=== PATIENT | female | born 1990 | race Caucasian/White ===

== ENCOUNTER 2016-10-20 08:44 | Outpatient (CLI) | payer OTHER ==
--- NOTE | 2016-10-20 10:21 | Ultrasound Report ---
BILATERAL BREAST ULTRASOUND: 10/20/2016 CLINICAL HISTORY: A 26-year-old female who has bilateral breast pain. Patient has no family history of breast cancer. She has a history of mastitis in the right breast on 09/18/2015. TECHNIQUE: Real-time scanning was performed with containers sales representative static images obtained. FINDINGS: Left breast shows no significant abnormality. No masses are seen. No cysts are noted. Right breast demonstrates an oval-shaped hypoechoic, well-circumscribed, solid mass with a hyperechoi c rim in the 11:30 position 3 cm superior to the nipple. This mass measures 1.1 x 0.5 x 1.0 cm. It has characteristics consistent with a benign fibroadenoma. Recommend a repeat ultrasound in six dk hs to further confirm this benign etiology. IMPRESSION: 1. NEGATIVE LEFT BREAST ULTRASOUND. 2. A 1.1 X 0.5 X 1.0 CM OVAL-SHAPED HYPOECHOIC, SOLID MASS WITH A THIN HYPERECHOIC RIM IS NOTED IN T HE 11:30 POSITION OF THE RIGHT BREAST. THIS HAS CHARACTERISTICS TYPICAL OF A BENIGN FIBROADENOMA. R ECOMMEND IT BE FOLLOWED WITH A REPEAT ULTRASOUND IN SIX MONTHS TO FURTHER CONFIRM THIS BENIGN ETIOLOG Y. BIRADS CATEGORY 3 - PROBABLY BENIGN FINDING. SHORT INTERVAL FOLLOWUP IMAGING STUDY RECOMMENDED. SIX -MONTH FOLLOWUP RIGHT BREAST ULTRASOUND IS INDICATED. COMMENT: Dr. Pedraza informed the patient of a probable benign fibroadenoma in the upper half of the right breast. He recommended a repeat ultrasound in six months for further evaluation. He also rec ommended to her monthly breast examination. If she notices the mass increasing in size before six mo nths, she should return to her physician. Patient was also given a written form indicating a probabl y benign finding in the right breast and recommending a six-month followup right breast ultrasound. 10:9:04 JOB #: [id number] EXT [id number] #:[id number]
--- NOTE | 2016-10-20 12:17 | Ultrasound Report ---
BILATERAL BREAST ULTRASOUND: 10/20/2016 CLINICAL HISTORY: A 26-year-old female who has bilateral breast pain. Patient has no family history of breast cancer. She has a history of mastitis in the right breast on 09/18/2015. TECHNIQUE: Real-time scanning was performed with industrial sales representative static images obtained. FINDINGS: Left breast shows no significant abnormality. No masses are seen. No cysts are noted. Right breast demonstrates an oval-shaped hypoechoic, well-circumscribed, solid mass with a hyperechoic rim in the 11:30 position 3 cm superior to the nipple. This mass measures 1.1 x 0.5 x 1.0 cm. It has characteristics consistent with a benign fibroadenoma. Recommend a repeat ultrasound in six months to further confirm this benign etiology. IMPRESSION: 1. NEGATIVE LEFT BREAST ULTRASOUND. 2. A 1.1 X 0.5 X 1.0 CM OVAL-SHAPED HYPOECHOIC, SOLID MASS WITH A THIN HYPERECHOIC RIM IS NOTED IN THE 11:30 POSITION OF THE RIGHT BREAST. THIS HAS CHARACTERISTICS TYPICAL OF A BENIGN FIBROADENOMA. RECOMMEND IT BE FOLLOWED WITH A REPEAT ULTRASOUND IN SIX MONTHS TO FURTHER CONFIRM THIS BENIGN ETIOLOGY. BIRADS CATEGORY 3 - PROBABLY BENIGN FINDING. SHORT INTERVAL FOLLOWUP IMAGING STUDY RECOMMENDED. SIX-MONTH FOLLOWUP RIGHT BREAST ULTRASOUND IS INDICATED. COMMENT: Dr. Pedraza informed the patient of a probable benign fibroadenoma in the upper half of the right breast. He recommended a repeat ultrasound in six months for further evaluation. He also recommended to her monthly breast examination. If she notices the mass increasing in size before six months, she should return to her physician. Patient was also given a written form indicating a probably benign finding in the right breast and recommending a six- month followup right breast ultrasound. BRYSON
== END 2016-10-20 08:45 | disposition home or self-care (01) ==
LOC: DI 08:44
PROVIDERS: ATTEND Family Medicine
DX: N63 Unspecified lump in breast (principal)
CPT/HCPCS: 76642

== ENCOUNTER 2016-11-06 15:31 | Emergency (ER) | payer OTHER ==
[2016-11-06] MEDS ORDERED: SODIUM CHLORIDE 0.9% 1,000 ML IV ONE (16:37)
[2016-11-06] MEDS ORDERED: PROCHLORPERAZINE INJ 10 MG in SODIUM CHLORIDE 0.9% 50 ML IV ONE (16:38)
[2016-11-06] MEDS ORDERED: diphenhydrAMINE INJ 50 MG/ML VIAL IVP STA (16:38)
[2016-11-06] MEDS ORDERED: diphenhydrAMINE INJ 50 MG/ML VIAL ONE (16:52)
[2016-11-06] MEDS ORDERED: PROCHLORPERAZINE 10 MG/2 ML VIAL ONE (16:53)
--- NOTE | 2016-11-06 17:24 | ED Physician Documentation ---
History of Present Illness - Stated complaint Stated Complaint: MIGRAINE - Chief complaint Chief Complaint: Neuro - History obtained from History obtained from: Patient - Additonal information Additional information: This patient is a pleasant 26-year-old female with a history of migraine headaches. She is normally on Imitrex however she had the onset of headache last night that was refractory to a dose of Imitrex late last night, followed by naproxen and another dose of Imitrex. Headache is frontal more in the right than the left. Is made worse by leaning forward, noise, and bright lights. She has had nausea and vomiting earlier today and feels warm. This is a typical migraine headache for her she says. She denies any neck pain, stiffness or other infectious symptoms or traumatic injury. She is to get headaches often however they have decreased in frequency following her . Her last headache was a week ago. She is followed by her PMD for this problem. Review of systems: For pertinent positive and negative questions for the review of systems please see history of present illness. Otherwise all other systems have been reviewed and are negative. Dragon disclaimer: Parts of this medical record were created using voice recognition technology. Because of the inherent limitations of this system occasional same sounding word substitutions do occur and persist despite proofreading. Please read the document for context. 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: Other HEENT: Tonsil/Adenoidectomy - Present Medications Home Medications: Ambulatory Orders Medication Instructions Recorded Confirmed Citalopram [CeleXA] 20 mg PO DAILY 11/06/16 11/06/16 Dextroamphetamine/Amphetamine 30 mg PO DAILY 11/06/16 11/06/16 [Adderall 30 mg Tablet] Etonogestrel/Ethinyl Estradiol 11/06/16 [Nuvaring Vaginal Ring] Lamotrigine [Lamotrigine ER] 200 mg PO DAILY 11/06/16 11/06/16 Sumatriptan Succinate [Imitrex] 50 mg PO BID PRN 11/06/16 11/06/16 cloNIDine [Catapres] 0.2 mg PO DAILY 11/06/16 11/06/16 - Allergies Allergies/Adverse Reactions: Allergies Allergy/AdvReac Type Severity Reaction Status Date / Time azithromycin Allergy Intermediate Rash Verified 12/19/15 19:58 latex Allergy Intermediate Rash Verified 12/19/15 19:58 gluten Allergy Cramps Verified 12/19/15 19:58 pineapple Allergy Hives Verified 12/19/15 19:58 - Social History Does the pt smoke?: No Smoking Status: Never smoker Does the pt drink ETOH?: Yes Does the pt have substance abuse?: No - Immunizations Immunizations are current?: Yes - POLST Patient has POLST: No PD ED PE NORMAL - General General: Alert and oriented X 3, No acute distress, Well developed/nourished - HEENT HEENT: Atraumatic, PERRL, EOMI - Cardiac Cardiac: RRR, No murmur, No gallop - Respiratory Respiratory: No respiratory distress, Clear bilaterally - Abdomen Abdomen: Normal bowel sounds, Soft, Non tender, Non distended - Back Back: No CVA TTP, No spinal TTP - Derm Derm: Normal color, Warm and dry, No rash, Other - Extremities Extremities: No deformity, Normal ROM s pain, No edema - Neuro Neuro: Alert and oriented X 3, tire mounter 2-12 intact, No motor deficit, No sensory deficit - Psych Psych: Normal mood, Normal affect Results - Vitals Vitals: Vital Signs - 24 hr 11/06/16 15:40 Temperature 35.3 C L Heart Rate 87 Respiratory 16 Rate Blood Pressure 129/82 H O2 Saturation 100 Oxygen O2 Source Room air PD MEDICAL DECISION MAKING - ED course ED course: Patient is a 26-year-old femaleWho presents with a complaint of migrainous symptoms. The symptoms are quite typical for her. There are no other unusual circumstances. On examination she is well-appearing female no apparent distress she is awake and alert answers questions appropriately and has a normal neurologic examination. She was given a migrainous headache cocktail consisting of IV fluids Compazine and Benadryl has had significant improvement in her symptoms. At this point in time she feels much better and will be released to home. Disposition: To home Clinical impression: 1. Acute migrainous headache bilateral frontal area-resolved
[2016-11-06 18:01] VITALS: BP 110/71
== END 2016-11-06 18:01 | disposition home or self-care (01) ==
LOC: ED 15:31
DX: G43.909 Migraine, unspecified, not intractable, without status migrainosus (principal)
CPT/HCPCS: 96374; 96375; 99283; 99284

== ENCOUNTER 2017-04-13 17:45 | Emergency (ER) | payer OTHER ==
[2017-04-13] MEDS ORDERED: DEXAMETHASONE 10 MG/ML VIAL PO STA (18:31)
[2017-04-13] MEDS ORDERED: IBUPROFEN 800 MG TABLET PO STA (18:31)
--- NOTE | 2017-04-13 18:39 | ED Physician Documentation ---
PD HPI URI - Stated complaint Stated Complaint: FLU LIKE SYMPTOMS - Chief complaint Chief Complaint: Fever - History obtained from History obtained from: Patient - History of Present Illness Timing - onset: Today Timing duration: Days (1) Timing details: Gradual onset Pain level max: 4 Pain level now: 4 Associated symptoms: Fever, Chills, Sweats, Sore throat, Other (body aches) Contributing factors: Sick contact (students) Improves by: Medication (motrin) Worsened by: Other (swallowing) Recently seen: Not recently seen - Additional information Additional information: states generalized body aches and low back body aches Review of Systems Constitutional: denies: Fever, Chills Ears: denies: Ear pain Nose: denies: Rhinorrhea / runny nose, Congestion Throat: reports: Sore throat Respiratory: denies: Cough GI: denies: Abdominal Pain, Nausea, Vomiting, Diarrhea : denies: Dysuria, Frequency, Hesitancy, Now EGA Skin: denies: Rash Musculoskeletal: denies: Neck pain Neurologic: denies: Focal weakness, Numbness, Headache PD PAST MEDICAL HISTORY - Past Medical History Cardiovascular: None Respiratory: None Neuro: None Endocrine/Autoimmune: None, Other GI: None : None HEENT: None Psych: Post traumatic stress disorder, Other Musculoskeletal: None Derm: None - Past Surgical History Past Surgical History: Yes 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: Other HEENT: Tonsil/Adenoidectomy - Present Medications Home Medications: Ambulatory Orders Medication Instructions Recorded Confirmed Dextroamphetamine/Amphetamine 30 mg PO DAILY 11/06/16 04/13/17 [Adderall 30 mg Tablet] Etonogestrel/Ethinyl Estradiol 1 11/06/16 [Nuvaring Vaginal Ring] Lamotrigine [Lamotrigine ER] 200 mg PO DAILY 11/06/16 04/13/17 Sumatriptan Succinate [Imitrex] 50 mg PO BID PRN 11/06/16 04/13/17 cloNIDine [Catapres] 0.2 mg PO DAILY 11/06/16 04/13/17 Dextroamphetamine/Amphetamine 1 tab PO DAILY 04/13/17 04/13/17 [Adderall 20 mg Tablet] Ibuprofen [Motrin] 800 mg PO Q8H PRN #30 tablet 04/13/17 - Allergies Allergies/Adverse Reactions: Allergies Allergy/AdvReac Type Severity Reaction Status Date / Time azithromycin Allergy Intermediate Rash Verified 04/13/17 17:52 latex Allergy Intermediate Rash Verified 04/13/17 17:52 gluten Allergy Cramps Verified 12/19/15 19:58 pineapple Allergy Hives Verified 12/19/15 19:58 - Social History Does the pt smoke?: No Smoking Status: Never smoker Does the pt drink ETOH?: Yes Does the pt have substance abuse?: No - Immunizations Immunizations are current?: Yes - POLST Patient has POLST: No PD ED PE NORMAL - Vitals Vital signs reviewed: Yes - General General: Alert and oriented X 3, No acute distress - HEENT HEENT: PERRL, Moist mucous membranes, Other (mild posterior oropharyngeal erythema without exudates.) - Neck Neck: Supple, no meningeal sign, No adenopathy - Cardiac Cardiac: RRR, Strong equal pulses - Respiratory Respiratory: Clear bilaterally - Abdomen Abdomen: Soft, Non tender, Non distended - Back Back: No CVA TTP, No spinal TTP - Derm Derm: Warm and dry - Extremities Extremities: No edema, No calf tenderness / cord - Neuro Neuro: Alert and oriented X 3, mix chemist 2-12 intact, No motor deficit, No sensory deficit, Normal speech - Psych Psych: Normal mood, Normal affect Results - Vitals Vitals: Oxygen O2 Source Room air - Labs Labs: Microbiology 04/13/17 18:23 Group A Strep Throat Culture - Preliminary Throat CULTURE IN PROGRESS. RESULTS TO FOLLOW. Laboratory Tests 04/13/17 04/13/17 04/13/17 18:23 18:23 18:40 Urine Color YELLOW Urine Clarity CLEAR Urine pH 6.0 Ur Specific [place] 1.020 Urine Protein NEGATIVE Urine Glucose (UA) NEGATIVE Urine Ketones NEGATIVE Urine Occult Blood NEGATIVE Urine Nitrite NEGATIVE Urine Bilirubin NEGATIVE Urine Urobilinogen 0.2 (NORMAL) Ur Leukocyte Esterase NEGATIVE Ur Microscopic Review NOT INDICATED Urine Culture Comments NOT INDICATED Urine HCG, Qual NEGATIVE Influenza A (Rapid) Negative Influenza B (Rapid) Negative Influenza Types A,B Ag - Group A Strep Rapid Negative PD MEDICAL DECISION MAKING - ED course Complexity details: reviewed results, re-evaluated patient, considered differential, d/w patient ED course: Patient is a 27-year-old female who presents to the emergency department what appears to be a viral syndrome. She is well-appearing, nontoxic. Afebrile here. Tolerating p.o. without difficulty. Feels better after treatment. Negative influenza swab. Negative rapid strep. Negative urinalysis. We will continue supportive care and follow-up with her doctor. Patient counseled regarding signs and symptoms for which I believe and urgent re-evaluation would be necessary. Patient with good understanding of and agreement to plan and is comfortable going home at this time This document was made in part using voice recognition software. While efforts are made to proofread this document, sound alike and grammatical errors may occur. Departure - Departure Disposition: 01 Home, Self Care Clinical Impression: Viral syndrome Condition: Good Instructions: ED Viral Syndrome Follow-Up: MARQUITA ESCALANTE [Primary Care Provider] - Within 1 week Prescriptions: Ibuprofen [Motrin] 800 mg PO Q8H PRN #30 tablet PRN Reason: PAIN &/OR FEVER Comments: Drink plenty of fluids and rest. Return if you worsen. Your influenza and strep tests are negative today. Discharge Date/Time: 04/13/17 20:11
[2017-04-13] MEDS ORDERED: IBUPROFEN 800 MG TABLET PO ONE (18:41)
[2017-04-13] MEDS ORDERED: DEXAMETHASONE 10 MG/ML VIAL ONE (18:41)
[2017-04-13] MEDS ORDERED: CHERRY SYRUP 10 ML UDC PO ONE (18:42)
[2017-04-13 18:52] LABS: RAPID STREP SCREEN REAGENT QC YELLOW (YELLOW)
[2017-04-13 19:46] LABS: BILIRUBIN,URINE NEGATIVE (NEGATIVE)
[2017-04-13 19:47] LABS: UA CHARGE (STRIP ONLY) YES; UR CULTURE IF IND NOT INDICATED
[2017-04-13 19:49] LABS: HCG UR QUAL NEGATIVE
[2017-04-13 19:55] VITALS: BP 141/72
== END 2017-04-13 20:11 | disposition home or self-care (01) ==
LOC: ED 17:45
DX: B34.9 Viral infection, unspecified (principal)
CPT/HCPCS: 81003; 81025; 87070; 87275; 87276; 87430; 99283; A9270; 81001; 87086

== ENCOUNTER 2017-06-19 10:33 | Outpatient (CLI) | payer OTHER ==
--- NOTE | 2017-06-19 11:58 | Ultrasound Report ---
RIGHT BREAST ULTRASOUND: 06/19/2017 CLINICAL INDICATION: Followup fibroadenoma. COMPARISON: 10/20/2016. TECHNIQUE: Real-time scanning was performed with airport representative static images obtained. FINDINGS: Ultrasound of the right upper outer quadrant was performed. At the 11:30 position, 3 cm from the nipple, there is an 11 x 9 x 6 mm hypoechoic circumscribed nodule with posterior acoustic enhancement, compatible with a stable fibroadenoma. No sonographically suspicious findings are appreciated. IMPRESSION: BENIGN FINDINGS, WITH A STABLE LIKELY FIBROADENOMA AT THE 11:30 POSITION OF THE RIGHT BREAST. RECOMMENDATION: ROUTINE ANNUAL SCREENING, TO COMMENCE AT AGE 39, UNLESS OTHERWISE CLINICALLY INDICATED. BIRADS CATEGORY 2-BENIGN FINDINGS. TD: 06/19/2017 11:57
== END 2017-06-19 10:34 | disposition home or self-care (01) ==
LOC: DI 10:33
PROVIDERS: ATTEND Family Medicine
DX: D24.1 Benign neoplasm of right breast (principal)
CPT/HCPCS: 76642

== ENCOUNTER 2017-07-26 14:26 | Emergency (ER) | payer OTHER ==
--- NOTE | 2017-07-26 14:57 | ED Physician Documentation ---
PD HPI HEADACHE - Stated complaint Stated Complaint: MIGRAINE - Chief complaint Chief Complaint: Neuro - History obtained from History obtained from: Patient - History of Present Illness Timing - onset: Today Timing - onset during: Light activity Timing - duration: Hours Timing - details: Gradual onset, Still present, Constant Worst headache ever?: No: Worst headache ever? Location: Front, Right Quality: Throbbing, Aching Associated symptoms: Nausea, Vomiting, Vision changes (lights bothersome). No: Fever, Stiff neck, Weakness, Numbness Worsened by: Light, Noise Contributing factors: No: Hypertension, Recent illness, Trauma Similar symptoms before: Diagnosis (migraines, with home meds usually working okay.) Recently seen: Not recently seen Review of Systems Constitutional: denies: Fever, Chills Eyes: reports: Photophobia. denies: Loss of vision Nose: denies: Rhinorrhea / runny nose, Congestion Throat: denies: Sore throat GI: reports: Nausea, Vomiting. 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: Other HEENT: Tonsil/Adenoidectomy - Present Medications Home Medications: Ambulatory Orders Medication Instructions Recorded Confirmed Dextroamphetamine/Amphetamine 30 mg PO DAILY 11/06/16 04/13/17 [Adderall 30 mg Tablet] Etonogestrel/Ethinyl Estradiol 1 11/06/16 [Nuvaring Vaginal Ring] Lamotrigine [Lamotrigine ER] 200 mg PO DAILY 11/06/16 04/13/17 Sumatriptan Succinate [Imitrex] 50 mg PO BID PRN 11/06/16 04/13/17 cloNIDine [Catapres] 0.2 mg PO DAILY 11/06/16 04/13/17 Dextroamphetamine/Amphetamine 1 tab PO DAILY 04/13/17 04/13/17 [Adderall 20 mg Tablet] Ibuprofen [Motrin] 800 mg PO Q8H PRN #30 tablet 04/13/17 Butalb/Acetaminophen/Caffeine 1 each PO Q6H PRN #20 capsule 07/26/17 [Fioricet 50-300-40 mg Capsule] Ondansetron Odt [Zofran] 4 mg TL Q6H PRN #15 tablet 07/26/17 Promethazine [Phenergan] 25 mg PO Q6H PRN #20 tab 07/26/17 - Allergies Allergies/Adverse Reactions: Allergies Allergy/AdvReac Type Severity Reaction Status Date / Time azithromycin Allergy Intermediate Rash Verified 04/13/17 17:52 latex Allergy Intermediate Rash Verified 04/13/17 17:52 gluten Allergy Cramps Verified 12/19/15 19:58 pineapple Allergy Hives Verified 12/19/15 19:58 - Social History Does the pt smoke?: No Smoking Status: Never smoker Does the pt drink ETOH?: Yes Does the pt have substance abuse?: No - Immunizations Immunizations are current?: Yes - POLST Patient has POLST: No PD ED PE NORMAL - Vitals Vital signs reviewed: Yes - General General: Alert and oriented X 3, Well developed/nourished - HEENT HEENT: PERRL, EOMI (but light sensitive), Ears normal, Pharynx benign - Neck Neck: Supple, no meningeal sign, No adenopathy - Cardiac Cardiac: RRR, No murmur - Respiratory Respiratory: Clear bilaterally - Abdomen Abdomen: Soft, Non tender - Back Back: No CVA TTP - Derm Derm: Normal color, Warm and dry, No rash - Neuro Neuro: Alert and oriented X 3, batting machine operator 2-12 intact, No motor deficit, No sensory deficit, Normal speech, Other Eye Opening: Spontaneous Motor: Obeys Commands Verbal: Oriented GCS Score: 15 - Psych Psych: Normal mood, Normal affect Results - Vitals Vitals: Oxygen O2 Source Room air PD MEDICAL DECISION MAKING - ED course Complexity details: re-evaluated patient (much improved and headache about gone with meds/fluids. ), considered differential, d/w patient Departure - Departure Disposition: 01 Home, Self Care Clinical Impression: Migraine Qualifiers: Migraine type: unspecified Status migrainosus presence: without status migrainosus Intractability: not intractable Qualified Code(s): G43.909 - Migraine, unspecified, not intractable, without status migrainosus Condition: Stable Record reviewed to determine appropriate education?: Yes Instructions: ED Headache Migraine Follow-Up: Mary Holley PA-C [Primary Care Provider] - Prescriptions: Butalb/Acetaminophen/Caffeine [Fioricet 50-300-40 mg Capsule] 1 each PO Q6H PRN #20 capsule PRN Reason: Headache Ondansetron Odt [Zofran] 4 mg TL Q6H PRN #15 tablet PRN Reason: Nausea / Vomiting Promethazine [Phenergan] 25 mg PO Q6H PRN #20 tab PRN Reason: Nausea / Vomiting Comments: Drink lots of fluids today. For subsequent migraines, still use your Imitrex and he can combine it with Zofran for nausea and some Tylenol or ibuprofen. Sometimes a combination works better. If that does not work at times, go to second line combination of promethazine and Fioricet. If that still does not help, a you are welcome to return to the ER episodically for intractable migraines. Discharge Date/Time: 07/26/17 16:44
[2017-07-26] MEDS ORDERED: SODIUM CHLORIDE 0.9% 1,000 ML IV ONE (15:27)
[2017-07-26] MEDS ORDERED: DEXAMETHASONE 10 MG/ML VIAL IVP STA (15:27)
[2017-07-26] MEDS ORDERED: diphenhydrAMINE INJ 50 MG/ML VIAL IVP STA (15:27)
[2017-07-26] MEDS ORDERED: KETOROLAC 30 MG/ML VIAL IVP STA (15:27)
[2017-07-26] MEDS ORDERED: METOCLOPRAMIDE 10 MG/2 ML VIAL IVP STA (15:27)
[2017-07-26 16:29] VITALS: BP 112/75
== END 2017-07-26 16:44 | disposition home or self-care (01) ==
LOC: ED 14:26
DX: G43.909 Migraine, unspecified, not intractable, without status migrainosus (principal)
CPT/HCPCS: 96361; 96374; 96375; 99283; 99284; J1200; J2765

== ENCOUNTER 2017-11-17 08:00 | Outpatient (CLI) | payer OTHER ==
[2017-11-17 15:47] LABS: MUDS CUTOFF CONCENTRATIONS CUTOFF CONC BELOW:
[2017-11-17 16:02] LABS: AMPHETAMINE SCREEN,URINE NEGATIVE (NEGATIVE); BENZODIAZEPINES SCREEN, URINE NEGATIVE (NEGATIVE); COCAINE SCREEN URINE NEGATIVE (NEGATIVE); METHADONE SCREEN, URINE NEGATIVE (NEGATIVE); METHAMPHETAMINES SCREEN, URINE NEGATIVE (NEGATIVE); OPIATE SCREEN, URINE NEGATIVE (NEGATIVE); OXYCODONE SCREEN, URINE NEGATIVE (NEGATIVE); PROPOXYPHENE SCREEN, URINE NEGATIVE (NEGATIVE); TRICYCLIC ANTIDEPRESSANT,URINE NEGATIVE (NEGATIVE)
== END 2017-11-17 08:01 | disposition home or self-care (01) ==
LOC: LAB.R 08:00
PROVIDERS: ATTEND Registered Nurse
DX: Z36.9 Encounter for antenatal screening, unspecified (principal)
CPT/HCPCS: 80306

== ENCOUNTER 2017-11-17 11:56 | Outpatient (CLI) | payer OTHER ==
[2017-11-17 12:31] LABS: BILIRUBIN,URINE NEGATIVE (NEGATIVE); GLUCOSE, URINE (UA) NEGATIVE (NEGATIVE); KETONES,URINE (UA) NEGATIVE (NEGATIVE); LEUKOCYTE ESTERASE, URINE NEGATIVE (NEGATIVE); NITRITE,URINE NEGATIVE (NEGATIVE); OCCULT BLOOD,URINE TRACE-LYSE (NEGATIVE); PROTEIN,URINE NEGATIVE (NEGATIVE); UROBILINOGEN,URINE 0.2 (NORMAL) E.U./dL (NORMAL)
[2017-11-17 12:34] LABS: BASOPHILS % (AUTO) 0.4 %; EOSINOPHILS # (AUTO) 0.1 10^3/uL (0.0-0.7); EOSINOPHILS % (AUTO) 0.7 %; HGB - HEMOGLOBIN 13.3 g/dL (12.0-16.0); LYMPHOCYTES # (AUTO) 2.3 10^3/uL (1.5-3.5); MEAN CORPUSCULAR HEMOGLOBIN 32.1 pg (27.0-31.0); MEAN CORPUSCULAR HGB CONC 35.8 g/dL (32.0-36.0); MEAN CORPUSCULAR VOLUME 89.9 fL (81.0-99.0); MEAN PLATELET VOLUME 7.5 fL (7.9-10.8); MONOCYTES # (AUTO) 0.5 10^3/uL (0.0-1.0); MONOCYTES % (AUTO) 4.5 %; NEUTROPHILS # (AUTO) 7.3 10^3/uL (1.5-6.6); NEUTROPHILS % (AUTO) 71.4 %; PLT - PLATELET COUNT 273 10^3/uL (130-450); RED BLOOD COUNT 4.14 10^6/uL (4.20-5.40); RED CELL DISTRIBUTION WIDTH 13.2 % (12.0-15.0); WHITE BLOOD COUNT 10.2 x10^3/uL (4.8-10.8)
[2017-11-17 12:39] LABS: BACTERIA,URINE Rare /HPF (None Seen); CLARITY,URINE CLEAR (CLEAR); RBC,URINE 0-5 /HPF (0-5); SQUAMOUS EPITHELIAL CELL,UR MOD Squamous (<= Few)
[2017-11-17 12:48] LABS: HB2 TOTAL 13.8 g/dL; HEMOGLOBIN A1C 0.48 g/dL; HEMOGLOBIN A1C % 5.3 % (4.6-6.2)
[2017-11-17 12:49] LABS: ALBUMIN 3.8 g/dL (3.2-5.5); BILIRUBIN,TOTAL 0.6 mg/dL (0.2-1.0); CALCIUM 9.5 mg/dL (8.5-10.3); CREATININE 0.5 mg/dL (0.4-1.0); TOTAL PROTEIN 7.5 g/dL (6.7-8.2)
[2017-11-18 14:36] LABS: HIV AG/AB 4TH GEN NON-REACTIVE (NON-REACTIVE)
[2017-11-18 15:41] LABS: HEPATITIS B SURFACE ANTIGEN NON-REACTIVE (NON-REACTIVE); HEPATITIS C ANTIBODY NON-REACTIVE (NON-REACTIVE)
== END 2017-11-17 11:57 | disposition home or self-care (01) ==
LOC: LAB 11:56
PROVIDERS: ATTEND Registered Nurse
DX: Z36.9 Encounter for antenatal screening, unspecified (principal); E03.8 Other specified hypothyroidism; O99.211 Obesity complicating pregnancy, first trimester
CPT/HCPCS: 36415; 80053; 80306; 81001; 81599; 83036; 84163; 84443; 85025; 86592; 86762; 86803; 86850; 86900; 86901; 87340; 87389

== ENCOUNTER 2018-01-31 12:30 | Outpatient (CLI) | payer OTHER ==
--- NOTE | 2018-02-01 12:39 | Ultrasound Report ---
Reason: ENCTR FOR OTHER SPECIFIED SCREENING Procedure Date: 01/31/2018 Accession Number: [id number] / [id number] Procedure: US - OB Detailed Eval CPT Code: FULL RESULT: EXAM: COMPLETE OBSTETRICAL ULTRASOUND EXAM DATE: 01/31/2018 02:01 PM. CLINICAL HISTORY: anatomic survey. COMPARISON: None.. TECHNIQUE: Real-time sonographic evaluation of the fetus performed by the drafter landscape. Multiple major account representative static images were saved for review. DATING: Established EGA 20 weeks and 1 day with AMBER 06/19/2018 based on a reported first trimester ultrasound which is not available for review. EGA 20 weeks 4 days with AMBER 06/16/2018 based on the current ultrasound. GENERAL EVALUATION Boss . Cardiac activity: 152 bpm. movement: Visualized. Presentation: Variable, at times breech. Placenta: Posterior position. No evidence for previa. Umbilical cord: 3 vessel cord. Central placental cord origin. Amniotic fluid: Subjectively normal, MVP 5.5 cm. BIOMETRY Bi-Parietal Diameter (BPD): 4.8 cm, 20 weeks 3 days. Head Circumference (HC): 18.3 cm, 20 weeks 4 days. Abdominal Circumference (AC): 16 cm, 21 weeks 0 days. Femur Length (FL): 3.4 cm, 20 weeks 4 days. Estimated Weight: 381 gm, approximately the 70th percentile for 20 weeks 1 day. The percentile estimate is based on a visual inspection of the [place] chart. ANATOMY The intracranial structures, profile, face/nose/lips, spine, 4 chamber heart and outflow tracts, stomach, abdominal wall and cord insertion, diaphragm, kidneys, bladder, and extremities were visualized and demonstrate no abnormality. MATERNAL STRUCTURES Uterus: Unremarkable. Cervix: Long and closed. Transabdominal length 4.2 cm. Visualization of the adnexa is limited with no abnormality identified. Free fluid: None. IMPRESSION: 1. Boss live intrauterine with gestational age 20 weeks 1 day based on the assigned source of dating as relayed by the patient. 2. Estimated weight is within expected limits for assigned dating. 3. Normal anatomic survey. No anatomic abnormalities are detected at this time. RADIA
== END 2018-01-31 12:31 | disposition home or self-care (01) ==
LOC: DI 12:30
PROVIDERS: ATTEND Registered Nurse
DX: Z36.89 Encounter for other specified antenatal screening (principal)
CPT/HCPCS: 76811

== ENCOUNTER 2018-03-02 13:02 | Outpatient (CLI) | payer OTHER ==
[2018-03-02 14:36] LABS: BASOPHILS # (AUTO) 0.1 10^3/uL (0.0-0.1); BASOPHILS % (AUTO) 0.5 %; EOSINOPHILS # (AUTO) 0.1 10^3/uL (0.0-0.7); EOSINOPHILS % (AUTO) 0.6 %; HGB - HEMOGLOBIN 11.9 g/dL (12.0-16.0); LYMPHOCYTES # (AUTO) 1.9 10^3/uL (1.5-3.5); LYMPHOCYTES % (AUTO) 16.9 %; MEAN CORPUSCULAR HEMOGLOBIN 33.4 pg (27.0-31.0); MEAN CORPUSCULAR HGB CONC 36.4 g/dL (32.0-36.0); MEAN CORPUSCULAR VOLUME 91.8 fL (81.0-99.0); MEAN PLATELET VOLUME 7.3 fL (7.9-10.8); MONOCYTES # (AUTO) 0.4 10^3/uL (0.0-1.0); NEUTROPHILS # (AUTO) 8.8 10^3/uL (1.5-6.6); PLT - PLATELET COUNT 251 10^3/uL (130-450); RED BLOOD COUNT 3.56 10^6/uL (4.20-5.40); RED CELL DISTRIBUTION WIDTH 13.7 % (12.0-15.0); WHITE BLOOD COUNT 11.2 x10^3/uL (4.8-10.8)
== END 2018-03-02 13:03 | disposition home or self-care (01) ==
LOC: LAB 13:02
PROVIDERS: ATTEND Registered Nurse
DX: E03.8 Other specified hypothyroidism (principal); Z34.82 Encounter for supervision of other normal pregnancy, second trimester
CPT/HCPCS: 36415; 82950; 84443; 85025; 86850

== ENCOUNTER 2018-03-12 07:59 | Outpatient (CLI) | payer OTHER | END 2018-03-12 08:00 | disposition home or self-care (01) | LOC: LAB 07:59 | PROVIDERS: ATTEND Registered Nurse | DX: R73.02 Impaired glucose tolerance (oral) (principal) | CPT/HCPCS: 36415; 82951; 82952 ==

== ENCOUNTER 2018-05-21 08:00 | Outpatient (CLI) | payer OTHER | END 2018-05-21 23:59 | disposition home or self-care (01) | LOC: LAB.R 08:00 | PROVIDERS: ATTEND Registered Nurse | DX: Z33.1 Pregnant state, incidental (principal) | CPT/HCPCS: 87491; 87591; 87797 ==

== ENCOUNTER 2018-05-21 09:59 | Outpatient (CLI) | payer OTHER ==
[2018-05-22 12:26] LABS: HEPATITIS C ANTIBODY NON-REACTIVE (NON-REACTIVE); HIV AG/AB 4TH GEN NON-REACTIVE (NON-REACTIVE)
== END 2018-05-21 10:00 | disposition home or self-care (01) ==
LOC: LAB 09:59
PROVIDERS: ATTEND Registered Nurse
DX: E06.3 Autoimmune thyroiditis (principal); Z33.1 Pregnant state, incidental
CPT/HCPCS: 36415; 81599; 84443; 86803; 87389; 87491; 87591; 87797

== ENCOUNTER 2018-05-29 13:43 | Outpatient (CLI) | payer OTHER ==
[2018-05-29 18:41] VITALS: BP 119/72
[2018-05-29 19:29] LABS: BILIRUBIN,URINE NEGATIVE (NEGATIVE); GLUCOSE, URINE (UA) NEGATIVE (NEGATIVE); KETONES,URINE (UA) NEGATIVE (NEGATIVE); LEUKOCYTE ESTERASE, URINE NEGATIVE (NEGATIVE); NITRITE,URINE NEGATIVE (NEGATIVE); OCCULT BLOOD,URINE NEGATIVE (NEGATIVE); PH,URINE 6.5 PH (5.0-7.5); PROTEIN,URINE NEGATIVE (NEGATIVE); UROBILINOGEN,URINE 0.2 (NORMAL) E.U./dL (NORMAL)
[2018-05-29 19:39] LABS: BACTERIA,URINE Rare /HPF (None Seen); CLARITY,URINE CLEAR (CLEAR); CRYSTALS,URINE 3-5 Calcium Oxalate /LPF; MUCUS,URINE Few Strands; RBC,URINE 0-5 /HPF (0-5); SQUAMOUS EPITHELIAL CELL,UR RARE Squamous (<= Few)
== END 2018-05-29 15:15 | disposition home or self-care (01) ==
LOC: WFO 13:43 → FBP 13:46 → WFO 15:15
PROVIDERS: ATTEND Registered Nurse
DX: O99.343 Other mental disorders complicating pregnancy, third trimester (principal); F41.9 Anxiety disorder, unspecified; O99.613 Diseases of the digestive system complicating pregnancy, third trimester; K92.89 Other specified diseases of the digestive system; Z3A.37 37 weeks gestation of pregnancy; K21.9 Gastro-esophageal reflux disease without esophagitis
CPT/HCPCS: 81001; 87086; 99212

== ENCOUNTER 2018-06-12 07:37 | Inpatient (IN) | payer OTHER ==
[2018-06-12] MEDS ORDERED: fentaNYL 100 MCG/2 ML VIAL IVP PRN (08:22)
[2018-06-12] MEDS ORDERED: ACETAMINOPHEN 325 MG TABLET PO PRN (08:22)
[2018-06-12] MEDS ORDERED: SODIUM CHLORIDE FLUSH 0.9% 10 ML SYRINGE IVP PRN (08:22)
[2018-06-12] MEDS ORDERED: ONDANSETRON 4 MG/2 ML VIAL IVP PRN ×2 (08:22→16:36)
[2018-06-12] MEDS: SODIUM CHLORIDE FLUSH 0.9% 10 ML SYRINGE IVP SCH ×2 (08:30→18:17)
[2018-06-12] MEDS: miSOPROStol 100 MCG TABLET BC SCH ×2 (08:57→15:37)
[2018-06-12 09:06] LABS: BASOPHILS % (AUTO) 0.3 %; EOSINOPHILS # (AUTO) 0.1 10^3/uL (0.0-0.7); EOSINOPHILS % (AUTO) 0.6 %; HGB - HEMOGLOBIN 13.4 g/dL (12.0-16.0); LYMPHOCYTES # (AUTO) 2.3 10^3/uL (1.5-3.5); LYMPHOCYTES % (AUTO) 15.8 %; MEAN CORPUSCULAR HEMOGLOBIN 33.3 pg (27.0-31.0); MEAN PLATELET VOLUME 8.3 fL (7.9-10.8); MONOCYTES # (AUTO) 0.8 10^3/uL (0.0-1.0); MONOCYTES % (AUTO) 5.7 %; NEUTROPHILS # (AUTO) 11.1 10^3/uL (1.5-6.6); NEUTROPHILS % (AUTO) 77.6 %; PLT - PLATELET COUNT 233 10^3/uL (130-450); RED BLOOD COUNT 4.04 10^6/uL (4.20-5.40); RED CELL DISTRIBUTION WIDTH 13.7 % (12.0-15.0); WHITE BLOOD COUNT 14.3 x10^3/uL (4.8-10.8)
--- NOTE | 2018-06-12 10:19 | HISTORY & PHYSICAL EXAMINATION ---
Admit History - Visit Reason Visit Reason: Other (logistic induction of labor @ 39 weeks' gestation, per pt request) - : 2 Parity: 1 Premature: 0 Ectopic: 0 : 0 Care: positive: [facility] Risk/History: positive: None Complications This : positive: None Smoking Status: Never smoker - Mother's Labs Mother's Blood Type: positive: A Mother's RH: positive: Positive GBS: positive: Group B Step Negative Rubella Status: positive: Immune Meds/Allgy - Home Medications Home Medications: Ambulatory Orders Medication Instructions Recorded Confirmed Dextroamphetamine/Amphetamine 30 mg PO DAILY 11/06/16 04/13/17 [Adderall 30 mg Tablet] Etonogestrel/Ethinyl Estradiol 1 11/06/16 [Nuvaring Vaginal Ring] Lamotrigine [Lamotrigine ER] 200 mg PO DAILY 11/06/16 04/13/17 Sumatriptan Succinate [Imitrex] 50 mg PO BID PRN 11/06/16 04/13/17 cloNIDine [Catapres] 0.2 mg PO DAILY 11/06/16 04/13/17 Dextroamphetamine/Amphetamine 1 tab PO DAILY 04/13/17 04/13/17 [Adderall 20 mg Tablet] Ibuprofen [Motrin] 800 mg PO Q8H PRN #30 tablet 04/13/17 Butalb/Acetaminophen/Caffeine 1 each PO Q6H PRN #20 capsule 07/26/17 [Fioricet 50-300-40 mg Capsule] Ondansetron Odt [Zofran] 4 mg TL Q6H PRN #15 tablet 07/26/17 Promethazine [Phenergan] 25 mg PO Q6H PRN #20 tab 07/26/17 - Allergies Allergies/Adverse Reactions: Allergies Allergy/AdvReac Type Severity Reaction Status Date / Time azithromycin Allergy Intermediate Rash Verified 04/13/17 17:52 latex Allergy Intermediate Rash Verified 04/13/17 17:52 gluten Allergy Cramps Verified 12/19/15 19:58 pineapple Allergy Hives Verified 12/19/15 19:58 Review of Systems - Constitutional Constitutional: denies: Fatigue, Fever, Chills - Eyes Eyes: denies: Blurred vision - Cardiovascular Cariovascular: denies: Irregular heart rate, Palpitations, Chest pain, Edema - Respiratory Respiratory: denies: Cough, SOB at rest, SOB with exertion - Gastrointestinal Gastrointestinal: reports: Reflux/heartburn. denies: Abdominal pain, Constipation, Diarrhea, Nausea, Vomiting - Genitourinary Genitourinary: reports: Frequency. denies: Dysuria, Urgency - Musculoskeletal Musculoskeletal: denies: Muscle pain, Back pain, Muscle aches - Integumentary Integumentary: denies: Rash, Pruritis, Lesions - Neurological Neurological: denies: General weakness, Headache - Psychiatric Psychiatric: reports: Anxiety - All Other Systems All Other Systems: reports: Reviewed and negative Physical - Abdominal Exam Contraction Frequency (min/apart): erratic Uterine Resting Tone: positive: Soft - Monitoring Heart Rate Baseline: 150 Strip Review: positive: Category I - Presentation Presentation: positive: Vertex - Vaginal Exam Membranes: positive: Membranes intact Dilation (in cm): 3 Effacement (%): 75 Station: positive: 0 Cervical Position: positive: Posterior - Speculum Exam Speculum Exam Performed: positive: No Findings: negative: Gross leak - Other Notes Labor Progress Note/Additional Text: Elizabeth Olmedo is a 28 y/o who is 39 weeks' gestation by first trimester US who received consistent care throughout her . Her was complicated by anxiety, which was pre-existing, and which was managed well w/ the use of sertraline t/o. She had an elevated 1-hr gtt w/ a subsequent normal 3-hr gtt. Her screening labs were all otherwise normal. She screened negative for GBS and STIs. She presents today w/ a request for induction of labor secondary to logistics. She has previously been induced with Pitocin only & request misoprostol management for her induction this time. Full PARQ has been held & informed consent obtained. 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; to [employer], denies DV; denies ETOH/drugs/tobacco Famhx: depression, anxiety PE: GEN: AAOX3, NAD WA gravid female HEENT: grossly normocephalic, atraumatic RESP: cta b/l t/o CARDIAC: rrr nls1s2, no murmur ABD: gravid, NT, lie longitudinal, presentation cephalic, efw 7.5-8# : no lesion; sve 3/75/0, posterior, firm, BBOW MS: from t/o, no erythema/edema/deformity SKIN: warm, well-perfused, c/d/i, no lesion NEURO: no focal deficit PSYCH: pleasantly conversant w/ normal mood & affect Plan for Labor - Plan For Labor I expect patient to be DC'd or transferred within 96 hours.: Yes Plan for Labor: 1. PARQ held for misoprostol 50mcg BC now 2. Plan reassess & AROM w/ cervical change 3. Anesthesia/analgesia PRN per pt request 4. Reviewed plan of care w/ pt, partner & RN @ bedside; all in agreement, without concerns.
[2018-06-12] MEDS ORDERED: LACTATED RINGERS 1,000 ML IV ONE (15:35)
[2018-06-12] MEDS ORDERED: OXYTOCIN/SODIUM CHLORIDE 500 ML IV ONE (15:47)
--- NOTE | 2018-06-12 15:51 | ANESTHESIA ---
Pre-Anesthesia VS, & Labs - Diagnosis desires labor analgesia - Procedure labor epidural Height 5 ft 5 in Weight (kg) 101.605 kg Body Mass Index 31.2 - NPO Other (instructed patient to be clears until delivery) - Is Patient ?: Yes - Lab Results Current Lab Results: Laboratory Tests 06/12/18 08:35: WBC 14.3 H, RBC 4.04 L, Hgb 13.4, Hct 38.4, MCV 95.0, MCH 33.3 H , MCHC 35.0, RDW 13.7, Plt Count 233, MPV 8.3, Neut # (Auto) 11.1 H, Lymph # (Auto) 2.3, [place] # (Auto) 0.8, Eos # (Auto) 0.1, Baso # (Auto) 0.0, Absolute Nucleated RBC 0.00, Nucleated RBC % 0.0 Fish Bones: 06/12/18 08:35 Home Medications and Allergies Active Medications Acetaminophen (Tylenol) 650 mg PO Q6H PRN PRN Reason: Pain or Fever Fentanyl (Fentanyl) 50 mcg IVP Q1H PRN PRN Reason: PAIN Misoprostol (Cytotec) 50 mcg BC Q4HR [facility] Last Admin: 06/12/18 15:37 Dose: Not Given Ondansetron HCl (Zofran Inj) 4 mg IVP Q4HR PRN PRN Reason: Nausea / Vomiting Sodium Chloride (Normal Saline Flush 0.9%) 10 ml IVP 0100,0900,1700 [facility] Last Admin: 06/12/18 08:30 Dose: 10 ml Sodium Chloride (Normal Saline Flush 0.9%) 10 ml IVP PRN PRN PRN Reason: NEEDED PER PROVIDER ORDERS Dextroamphetamine/Amphetamine [Adderall 30 mg Tablet] 30 mg PO DAILY 11/06/16 Etonogestrel/Ethinyl Estradiol [Nuvaring Vaginal Ring] 1 11/06/16 Lamotrigine [Lamotrigine ER] 200 mg PO DAILY 11/06/16 Sumatriptan Succinate [Imitrex] 50 mg PO BID PRN 11/06/16 cloNIDine [Catapres] 0.2 mg PO DAILY 11/06/16 Dextroamphetamine/Amphetamine [Adderall 20 mg Tablet] 1 tab PO DAILY 04/13/17 Allergies/Adverse Reactions: Allergies Allergy/AdvReac Type Severity Reaction Status Date / Time azithromycin Allergy Intermediate Rash Verified 04/13/17 17:52 latex Allergy Intermediate Rash Verified 04/13/17 17:52 gluten Allergy Cramps Verified 12/19/15 19:58 pineapple Allergy Hives Verified 12/19/15 19:58 Anes History & Medical History - Medical History Cardiovascular: reports: None Pulmonary: reports: None Gastrointestinal: reports: None Urinary: reports: None Musculoskeletal: reports: None Endocrine/Autoimmune: reports: None, Other Blood Disorders: reports: None Skin: reports: None Smoking Status: Never smoker - Surgical History General: Cholecystectomy Eyes Ears Nose Throat (EENT): Tonsil/Adenoidectomy Gynecologic: Other - Obstetrical History : 2 Parity: 1 Events: positive: None Complications: positive: None Plan for Delivery: induced labor, vaginal, labor epidural OB Anesthesia History: 2, para 1 Exam General: Alert, Oriented x3 Dental: WNL Mouth Opening: Greater than 4 Fingerbreadths Neck Mobility: Normal Mallampati classification: II Thyromental Distance: greater than 6 cm Respiratory: Lungs clear Cardiovascular: Regular rate Plan Anesthesia Type: Epidural Consent for Procedure(s) Verified and Reviewed: Yes Code Status: Attempt Resuscitation ASA classification: 2-Mild systemic disease Is this case an emergency?: No
[2018-06-12] MEDS ORDERED: fent/BUPIV 2 MCG/0.125% 250 ML EP ONE (15:55)
[2018-06-12] MEDS ORDERED: ROPIVACAINE 0.2% PF 20 ML AMPULE ONE (15:55)
--- NOTE | 2018-06-12 16:34 | PROVIDER PROGRESS NOTE ---
Labor Progress Note - Uterine Monitoring Uterine Monitoring Mode: positive: External toco Contraction Frequency (min/apart): 4-5 Contraction Intensity: positive: Moderate Uterine Resting Tone: positive: Soft - Monitoring Monitor Mode: positive: External ultrasound Heart Rate Baseline: 135 Heart Rate Variability: positive: Moderate (6-25 bmp) Accelerations: positive: Present, 15x15 Decelerations: positive: None Strip Review: positive: Category I - Vaginal Exam Dilation (in cm): 4 Effacement (%): 75 Station: 0 Cervical Position: Posterior - Labor Progress Note Labor Progress Note/Additional Text: S: Elizabeth reports more discomfort w/ her uterine contractions. She thinks she would like AROM to expedite the labor process & epidural placement O: AAOx3, NAD WA gravid female VSS EFM: BL 145bpm +accels, no decels, mod eloise TOCO: UCs q3-4 min, palp mod SVE: 4/75/-1, posterior, BBOW AROM'ed for mod CAF A: 28 y/o @ 39 weeks' gestation by first trimester US, s/p single dose buccal misoprostol for effective cervical ripening GBS negative, AROM'ed for CAF FHTs cat I Desires epidural anesthesia P: 1. Epidural now per pt request 2. Reassess cervical status x4 hours, earlier PRN 3. Pitocin infusion if no cervical change, reviewed w/ pt 4. Reviewed plan of care w/ pt, partner & RN @ bedside; all in agreement, without concerns
[2018-06-12] MEDS ORDERED: METOCLOPRAMIDE 10 MG/2 ML VIAL IVP PRN (16:36)
[2018-06-12] MEDS ORDERED: LACTATED RINGERS 500 ML IV ONE (16:36)
[2018-06-12] MEDS ORDERED: NALOXONE 0.4 MG/ML VIAL IVP PRN (16:36)
[2018-06-12] MEDS ORDERED: fent/BUPIV 2 MCG/0.125% 250 ML EP PRN (16:36)
[2018-06-12] MEDS ORDERED: ePHEDrine 50 MG/ML VIAL IVP PRN (16:36)
[2018-06-12] MEDS ORDERED: diphenhydrAMINE INJ 50 MG/ML VIAL IVP PRN (16:36)
[2018-06-12] MEDS ORDERED: NALBUPHINE 10 MG/ML AMP IVP PRN (16:36)
[2018-06-12] MEDS ORDERED: LIDOCAINE-MPF 1% 30 ML VIAL ONE (17:21)
--- NOTE | 2018-06-12 17:27 | PROVIDER PROGRESS NOTE ---
Labor Progress Note - Labor Progress Note Labor Progress Note/Additional Text: Called to see patient secondary to spontaneous FHR decelerations s/p insertion of epidural anesthesia & sudden onset of meconium-stained amniotic fluid. Pt comfortable w/ epidural, normotensive, FHR w/ decels to jesusita in 80s w/ resolution w/ intrauterine resuscitative efforts & return to baseline in hands and knees positioning. FSE placed, pt noted to be 6-7cm dilated, & FHTs initially WNL, then recurrent decelerations not in association w/ uterine contractions w/ return to [place] & supine positioning. Dr. Miranda DO, back-up CABLE C[employer]TER [employer] SWAGER called to room to evaluate pt & soft, pliable cervix reduced easily w/ counterpressure to complete dilatation over a period of [address] Jean @ bedside for VAVD, given rapid progression to 2nd stage & need to expedite delivery. Please see delivery report for details.
[2018-06-12] MEDS ORDERED: MAGNESIUM HYDROXIDE 2,400 MG/30 ML UDC PO PRN ×2 (17:53→17:54)
[2018-06-12] MEDS ORDERED: WITCH HAZEL/GLYCERIN 1 EACH MED..PAD TOP PRN (17:58)
--- NOTE | 2018-06-12 18:09 | DELIVERY NOTE ---
Delivery Note - Labor Labor: positive: Augmented by oxytocin, Induced by ARM - Delivery Method Infant Delivery Method: positive: Vacuum assist - Presentation Presentation: positive: Vertex, GILLIAN - left occiput anterior - Nuchal Cord Nuchal Cord: positive: None - Anesthetic Anesthetic: positive: Lidocaine - 1% plain - Amniotic Fluid Description Amniotic Fluid Description: positive: Moderate meconium - Vacuum Use Indication for Vacuum Use: positive: Suspicion of immediate or potential compromise Type of Vacuum Cup: positive: Cup: Mushroom Type, Cup: Rigid Vacuum Extraction: positive: Successful Number of pop-offs: 1 - Episiotomy Type Episiotomy Type: positive: None - Laceration Laceration: positive: 2nd degree, Periurethral - Suture Suture Type: positive: Vicryl Suture Size: positive: 4-0 - Delivery Outcome Delivery Outcome: positive: Livebirth - [place]: positive: Placed in direct skin contact with mother, Suctioned, Stimulated, Warmed, [place] used : 4 : 6 - Placenta Placenta: positive: Intact, Spontaneous - Estimated Blood Loss Estimated Blood Loss (in cc): 200 - Post Delivery Events Post Delivery Events: positive: No post delivery events - Delivery Comments (Free Text/Narrative) Delivery Comments (Free Text/Narrative): 28 yo with a term IUP, elective induction of labor. Elizabeth was induced earlier this AM. I was called emergently to bedside. The strip had a baseline in the 140's decreased overall variability, but accels seen. At about 16:55 the heart rate decreased to the 80's with slow recovery. I was updated by the RNs that the cervix was 8 cm dilation. GENET Sanz was in the room and had Elizabeth in hands and knees. I discussed with the patient my recommendation to proceed to delivery. Elizabeth rapidly dilated to complete as +2 station. I then decided we could deliver the baby quicker with less risks with a VAVD. Elizabeth agreed to a VAVD. Epidural in place and working well. CVE: 10/100/+2. Bowel annd bladder empty. BRANONN on examation. Single application of disk vacuum. One pull the good progress over 1 contraction and the baby was delivered. BRANNON upon delivery. No nuchal cord nor shoulder dystocia. Apgars 4/6/9. EBL 200 mL. Placenta delivered spontaneously, intact with 3VC. 2nd degree periurethral lacerations bilaterally, repaired with 4-0 vicryl. No complications. I explained to Elizabeth what had happened RE NRFHT's and why a vacuum delivery was performed. She was satisfied with the conversation.
[2018-06-12] MEDS: IBUPROFEN 800 MG TABLET PO SCH (18:28)
[2018-06-12] MEDS ORDERED: DOCUSATE SODIUM 100 MG CAPSULE PO SCH (21:00)
[2018-06-12] MEDS ORDERED: CELECOXIB 100 MG CAPSULE PO SCH (21:00)
[2018-06-12] MEDS: ACETAMINOPHEN 500 MG TABLET PO SCH (21:52)
[2018-06-12] MEDS: DOCUSATE SODIUM 100 MG CAPSULE PO SCH (21:53)
[2018-06-13] MEDS: IBUPROFEN 800 MG TABLET PO SCH ×3 (02:45→14:05)
[2018-06-13] MEDS: ACETAMINOPHEN 500 MG TABLET PO SCH ×2 (06:00→14:06)
[2018-06-13] MEDS: SODIUM CHLORIDE FLUSH 0.9% 10 ML SYRINGE IVP SCH ×2 (07:40→11:27)
[2018-06-13] MEDS: DOCUSATE SODIUM 100 MG CAPSULE PO SCH (08:35)
--- NOTE | 2018-06-13 10:52 | Discharge Plan ---
Discharge Plan Disposition: 01 Home, Self Care Condition: Good Diet: Regular Activity Restrictions: pelvic rest x6 weeks Shower Restrictions: No (NO TUB BATHS) Weight Bearing: Full Weight Instruction Topics: Vaginal After, Breastfeed How To, Exercises Kegel Additional Instructions or Follow Up instructions: x1 week w/ Sonja Sanz CNM; earlier PRN No Smoking: If you smoke, Please STOP! Call for help. Follow-up with: Sonja Sanz CNM, [employer] [Provider Admit Priv/Credential] -
--- NOTE | 2018-06-13 10:56 | DISCHARGE SUMMARY ---
"Discharge Summary Admit Date: 06/12/18 Discharge Date: 06/13/18 Discharging Provider: CORI Condition at Discharge: Good Discharge Disposition: 01 Home, Self Care Discharge Facility Name: [facility] - DIAGNOSES Admission Diagnoses: 39 WEEKS' GESTATION Discharge Diagnoses with Status of Each Condition: VAVD - HPI History of Present Illness: Elizabeth Olmedo is a 28 y/o [id number] who was admitted @ 39 weeks' gestation for elective induction of labor. She received a single does of 50mcg buccal misoprostol & underwent AROM @ 1530 @ 4cm dilatation, after which she entered rapid, active labor. She received an epidural for anesthesia. She then experienced a sudden deterioration in her FHR tracing & underwent FSE application. Dr. Jean was called to the bedside & FSE was applied to ensure accuracy of EFM; her cervix was pliable & reduced readily w/ counterpressure from 6cm to 10cm over a period of [address] Jean then performed VAVD & viable female infant was delivered w/o further complication. 2nd degree perineal laceration noted & repaired by Dr. Jean (see delivery note for details). - CONSULTS | PROCEDURES Consultations: anesthesia, obstetrics Procedures: misoprostol administration x1 AROM epidural placement FSE placement VAVD Repair of 2nd degree perineal laceartion - HOSPITAL COURSE Hospital Course: , Elizabeth is ambulating & voiding w/o difficulty or discomfort. She denies incontinence. She is passing flatus & tolerating a regular diet. She reports minimal lochia rubra & adequate pain control w/ non-opioid analgesia. She is well w/ excellent sustained latch. She reports a previously successful experience. She is planning 6 months of pp leave from work & her will have 2 weeks of leave to assist her w/ toddler @ home. She reports additional excellent social support. She has a hx of pp depression. She is taking sertraline & has been stable on her present dosing. She is able to fully articulate pp warning s/sx, including pp depression s/sx, and pp aftercare instructions. She is eager to leave the hospital & will be discharged to boarder status until her is discharged home. - ALLERGIES Allergies/Adverse Reactions: Allergies Allergy/AdvReac Type Severity Reaction Status Date / Time azithromycin Allergy Intermediate Rash Verified 04/13/17 17:52 latex Allergy Intermediate Rash Verified 04/13/17 17:52 gluten Allergy Cramps Verified 12/19/15 19:58 pineapple Allergy Hives Verified 12/19/15 19:58 - MEDICATIONS Home Medications: Ambulatory Orders Medication Instructions Recorded Confirmed Ibuprofen [Motrin] 800 mg PO Q6H tablet 06/13/18 - PHYSICAL EXAM AT DISCHARGE General Appearance: positive: No acute distress, Alert Eyes Bilateral: positive: Normal inspection, PERRL, EOMI Respiratory: positive: Chest non-tender, No respiratory distress, Breath sounds nml Cardiovascular: positive: Regular rate & rhythm, No murmur, No gallop Abdomen: positive: Non-tender, No distention, Other (FF U-1) Skin: positive: Color nml, No rash, Warm, Dry Extremities: positive: Non-tender, Full ROM, Nml appearance, No pedal edema. negative: Calf tenderness, Chuck's sign/cords Neurologic/Psychiatric: positive: Oriented x3, CN's nml (2-12), Motor nml, Sensation nml, Mood/affect nml Physical Exam Other/Comments: breasts b/l s, nt; nipples b/l intact & everted; colostrum readily expressible - LABS Result Diagrams: 06/12/18 08:35 - FOLLOW UP Follow Up: x1 week w/ Sonja Sanz CNM; earlier PRN problem - TIME SPENT Time Spent in Discharge (Minutes): 20"
[2018-06-13 14:47] VITALS: BP 110/61
--- NOTE | 2018-06-13 14:49 | Labor Flowsheet ---
Labor Flowsheet Datetime Report Generated by CPN: 06/13/2018 14:48 Datetime: 06/13/2018 14:45 VITAL SIGNS NBP Sys/Richa/Mean (mmHg): 110 : 61 : 72 Pulse: 75 SpO2 (%): 99 Datetime: 06/12/2018 17:20 Stage of : Recovery Datetime: 06/12/2018 17:19 UTERINE ACTIVITY Monitor Mode: External Frequency (min): indeterminate Quality: Strong Resting Tone (Palpate): Relaxed ASSESSMENT A Monitor Mode: Internal Scalp Electrode FHR Baseline Rate : indeterminate Actions for Decelerations: Side to Side; Hands and Knees; Oxygen Applied; IV Bolus; Sterile V aginal Exam; Provider Notified; Other Datetime: 06/12/2018 17:18 STAGE 2 Vacuum: Off Datetime: 06/12/2018 17:14 Comments: pushing Datetime: 06/12/2018 17:11 COMMUNICATION Communication: Provider at Bedside Provider Notified (Name): Miranda Datetime: 06/12/2018 17:09 VAGINAL EXAM Dilatation (cm): 8.0 Exam by: Milagrosa Patient Position/Activity: Hands-Knees Datetime: 06/12/2018 17:03 Monitor Interventions for FHR: FSE Applied Datetime: 06/12/2018 17:00 Duration (sec): 60-100 Pattern: Normal: <= 5 Contractions in 10 Minutes Variability: Moderate 6-25 bpm Accelerations: None Decelerations: Variable Category: Category II LaborFlag: Labor Datetime: 06/12/2018 16:52 Anesthesia Level Check: T7 Datetime: 06/12/2018 16:19 Epidural Procedure: Loading Dose Datetime: 06/12/2018 16:10 Anesthesia Comments: local Datetime: 06/12/2018 16:04 PROCEDURE TIME OUT Procedure Verify: Correct Patient Identity; Correct Side and Site are Marked; Accurate Procedure Co nsent Form; Agreement on Procedure to be Done; Correct Patient Position; Relevant Images and Results are Properly Labeled and Displayed; Addressed Need to Administer Antibiotics or Fluids for Irrigation ; Safety Precautions Based on Patient History or Medication Use ANESTHESIA Epidural Positioning: Sitting Datetime: 06/12/2018 15:24 Effacement (%): 75 Station: 0 Membrane Status: Ruptured Membranes Rupture Method: Artificial Amniotic Fluid Color: Clear Amniotic Fluid Amount: Moderate Amniotic Fluid Odor: None Datetime: 06/12/2018 15:01 FHR Baseline Changes: No Baseline Change Datetime: 06/12/2018 14:48 Communication Comments: hold cytotec Datetime: 06/12/2018 14:30 Respirations: 20 Datetime: 06/12/2018 13:02 Contraction Comments: Pt. states she is starting to feel contractions. Datetime: 06/12/2018 12:30 PATIENT CARE Oxygen Method: Room Air Datetime: 06/12/2018 10:30 Temperature (C): 36.7 Datetime: 06/12/2018 09:46 Unit Routine: Monitoring Teaching Comments: Pt. up ambulating around room Datetime: 06/12/2018 09:30 Monitor Interventions for UA: [place] Adjusted Datetime: 06/12/2018 09:25 TEACHING Plan of Care: Plan of Care Discussed; Induction Labor/Induction: Cervical Ripening Datetime: 06/12/2018 08:57 MEDICATIONS Cervical Ripening Agents: Cytotec @ 0857 Medication Comments: 50mcg BC
== END 2018-06-13 14:47 | disposition home or self-care (01) | DRG 807 ==
LOC: WFO 07:37 → FBP 08:02 → WFO 08:21 → FBP 08:22 → OBSVTOIN 16:26
PROVIDERS: ADMIT Registered Nurse; ATTEND Registered Nurse
PROC: 10D07Z6 Extraction of Products of Conception, Vacuum, Via Natural or Artificial Opening (ICD-10-PCS; principal; 2018-06-12)
PROC: 10907ZC Drainage of Amniotic Fluid, Therapeutic from Products of Conception, Via Natural or Artificial Opening (ICD-10-PCS; 2018-06-12)
PROC: 0UQMXZZ Repair Vulva, External Approach (ICD-10-PCS; 2018-06-12)
DX: O99.344 Other mental disorders complicating childbirth (principal); Z37.0 Single live birth; F41.9 Anxiety disorder, unspecified; F31.9 Bipolar disorder, unspecified; O76 Abnormality in fetal heart rate and rhythm complicating labor and delivery; O77.0 Labor and delivery complicated by meconium in amniotic fluid; O71.82 Other specified trauma to perineum and vulva; O99.284 Endocrine, nutritional and metabolic diseases complicating childbirth; E06.3 Autoimmune thyroiditis; O99.62 Diseases of the digestive system complicating childbirth; K90.0 Celiac disease; Z3A.39 39 weeks gestation of pregnancy
CPT/HCPCS: 85025; 96361; 96374

== ENCOUNTER 2018-08-07 08:00 | Outpatient (CLI) | payer OTHER ==
[2018-08-07 13:57] LABS: HB2 TOTAL 14.8 g/dL; HEMOGLOBIN A1C 0.5 g/dL; HEMOGLOBIN A1C % 5.2 % (4.6-6.2)
== END 2018-08-07 23:59 | disposition home or self-care (01) ==
LOC: LAB.N 08:00
PROVIDERS: ATTEND Registered Nurse
DX: Z00.00 Encounter for general adult medical examination without abnormal findings (principal)
CPT/HCPCS: 36415; 82947; 83036; 84443

== ENCOUNTER 2019-06-16 10:33 | Outpatient (CLI) | payer OTHER ==
[2019-06-16 11:14] LABS: BASOPHILS % (AUTO) 0.6 %; EOSINOPHILS # (AUTO) 0.1 10^3/uL (0.0-0.7); EOSINOPHILS % (AUTO) 1.9 %; HGB - HEMOGLOBIN 13.2 g/dL (12.0-16.0); LYMPHOCYTES # (AUTO) 2.3 10^3/uL (1.5-3.5); LYMPHOCYTES % (AUTO) 35.6 %; MEAN CORPUSCULAR HEMOGLOBIN 30.9 pg (27.0-31.0); MEAN CORPUSCULAR HGB CONC 34.2 g/dL (32.0-36.0); MEAN CORPUSCULAR VOLUME 90.4 fL (81.0-99.0); MEAN PLATELET VOLUME 9.5 fL (7.9-10.8); MONOCYTES # (AUTO) 0.4 10^3/uL (0.0-1.0); NEUTROPHILS # (AUTO) 3.6 10^3/uL (1.5-6.6); NEUTROPHILS % (AUTO) 55.6 %; PLT - PLATELET COUNT 277 10^3/uL (130-450); RED BLOOD COUNT 4.27 10^6/uL (4.20-5.40); RED CELL DISTRIBUTION WIDTH 12.5 % (12.0-15.0); WHITE BLOOD COUNT 6.5 x10^3/uL (4.8-10.8)
[2019-06-16 11:23] LABS: ALBUMIN 3.8 g/dL (3.2-5.5); ALBUMIN/GLOBULIN RATIO 1.1 (1.0-2.2); BILIRUBIN,TOTAL 0.5 mg/dL (0.2-1.0); CALCIUM 9.1 mg/dL (8.5-10.3); CREATININE 0.7 mg/dL (0.4-1.0); TOTAL PROTEIN 7.2 g/dL (6.7-8.2)
[2019-06-16 11:38] LABS: HB2 TOTAL 13.9 g/dL; HEMOGLOBIN A1C 0.41 g/dL; HEMOGLOBIN A1C % 4.9 % (4.6-6.2)
== END 2019-06-16 10:34 | disposition home or self-care (01) ==
LOC: LAB 10:33
PROVIDERS: ATTEND Physician Assistant
DX: Z00.00 Encounter for general adult medical examination without abnormal findings (principal)
CPT/HCPCS: 36415; 80053; 83036; 84443; 85025